=== PATIENT | female | born 1935 | race Asian ===

== ENCOUNTER 2018-02-23 16:26 | Outpatient (CLI) | payer OTHER, MEDICAID | END 2018-02-23 20:59 | disposition home or self-care (01) | LOC: SRD 16:26 | DX: M41.85 Other forms of scoliosis, thoracolumbar region (principal); I70.90 Unspecified atherosclerosis; Z90.49 Acquired absence of other specified parts of digestive tract | CPT/HCPCS: 72072-TC; 72110 ==

== ENCOUNTER 2023-02-01 12:13 | Inpatient (IN) | payer OTHER, MEDICAID ==
[~2023-02-01] VITALS: Ht 157.5 cm; Wt 42.6 kg
[2023-02-01 12:50] VITALS: BP_SYST 121
[2023-02-01 15:29] LABS: BASOPHILS % (AUTO) 0.3 % (0.0-2.0); HEMATOCRIT 38.1 % (36-48); HEMOGLOBIN 12.9 g/dL (12.0-16.0); LYMPHOCYTES # (AUTO) 0.8 K/uL (1.0-5.5); LYMPHOCYTES % (AUTO) 8.8 % (20.5-51.5); MEAN CORPUSCULAR HEMOGLOBIN 32 pg (27-31); MEAN CORPUSCULAR HGB CONC 34 % (32-36); MEAN CORPUSCULAR VOLUME 96 fL (79.0-98.0); MONOCYTES # (AUTO) 0.8 K/uL (0.0-1.0); MONOCYTES % (AUTO) 8.7 % (1.7-9.3); NEUTROPHILS # (AUTO) 7.8 K/uL (1.8-7.7); NEUTROPHILS % (AUTO) 82.2 % (40.0-70.0); PLATELET COUNT (AUTO) 165 K/uL (130-430); RED BLOOD CELL COUNT(AUTO) 3.98 MIL/uL (4.2-6.2); RED CELL DISTRIBUTION WIDTH 13.1 % (9.0-15.0); WHITE BLOOD COUNT (AUTO) 9.4 K/uL (4.8-10.8)
[2023-02-01 15:52] LABS: ANION GAP 11 (5-15); CALCIUM 9.2 mg/dL (8.4-11.0); CHLORIDE 103 mmol/L (98-107); CREATININE 1.35 mg/dL (0.55-1.30); GLUCOSE 111 mg/dL (70-99); UREA NITROGEN, BLOOD 21 mg/dL (8-21)
[2023-02-01 15:57] LABS: INR 1.1 (0.8-1.2); PROTHROMBIN TIME 11.3 SECS (9.5-12.5)
[2023-02-01 15:58] LABS: ALANINE AMINOTRANSFERASE 17 U/L (12-78); ALBUMIN 3.2 g/dL (3.4-4.8); ASPARTATE AMINOTRANSFERASE 18 U/L (10-37); TOTAL BILIRUBIN 0.8 mg/dL (0.0-1.0)
[2023-02-01] MEDS ORDERED: dilTIAZem HCL IVP 5 MG/ML VIAL IVP ONE (16:30)
[2023-02-01] MEDS ORDERED: DILTIAZEM HCL 60 MG TABLET PO ONE (16:30)
[2023-02-01] MEDS ORDERED: ESCI10TA PO (17:12)
[2023-02-01] MEDS ORDERED: METO25CA PO (17:12)
[2023-02-01] MEDS ORDERED: ATOR10TA68 PO (17:12)
[2023-02-01] MEDS ORDERED: DONE5TAB3 PO (17:12)
[2023-02-01] MEDS ORDERED: APIX2.5T PO (17:12)
[2023-02-01] MEDS ORDERED: POTASSIUM CHLORIDE 20 MEQ TAB.PRT.SR PO PRN (18:15)
[2023-02-01] MEDS ORDERED: MUPIROCIN 2% TOPICAL OINTMENT 22 GM NS PRN (18:15)
[2023-02-01] MEDS ORDERED: DOCUSATE SODIUM 100 MG CAPSULE PO PRN (18:15)
[2023-02-01] MEDS ORDERED: ACETAMINOPHEN 325 MG TABLET PO PRN (18:15)
[2023-02-01] MEDS ORDERED: MAGNESIUM SULFATE 50 ML IV PRN (18:15)
[2023-02-01] MEDS ORDERED: ZOLPIDEM TARTRATE 5 MG TABLET PO PRN (18:15)
[2023-02-01] MEDS ORDERED: ONDANSETRON HCL 4 MG/2 ML VIAL IVP PRN (18:15)
[2023-02-01] MEDS ORDERED: LORazepam 2 MG/ML VIAL IVP PRN (18:15)
[2023-02-01] MEDS: NACL 0.9% 1,000 ML IV SCH (19:21)
[2023-02-01] MEDS: METOPROLOL TARTRATE 25 MG TABLET PO SCH (21:00)
[2023-02-02] VITALS (7 sets, daily range): BP systolic 100–149
[2023-02-02 07:30] LABS: BASOPHILS % (AUTO) 0.2 % (0.0-2.0); HEMATOCRIT 33.8 % (36-48); HEMOGLOBIN 11.5 g/dL (12.0-16.0); LYMPHOCYTES # (AUTO) 1.6 K/uL (1.0-5.5); LYMPHOCYTES % (AUTO) 14.4 % (20.5-51.5); MEAN CORPUSCULAR HEMOGLOBIN 33 pg (27-31); MEAN CORPUSCULAR HGB CONC 34 % (32-36); MEAN CORPUSCULAR VOLUME 96 fL (79.0-98.0); MONOCYTES # (AUTO) 0.8 K/uL (0.0-1.0); MONOCYTES % (AUTO) 7.4 % (1.7-9.3); NEUTROPHILS # (AUTO) 8.6 K/uL (1.8-7.7); PLATELET COUNT (AUTO) 145 K/uL (130-430); RED CELL DISTRIBUTION WIDTH 13.3 % (9.0-15.0)
[2023-02-02] MEDS: APIXABAN 2.5 MG TABLET PO SCH ×3 (07:30→21:17)
[2023-02-02 07:46] LABS: ANION GAP 10 (5-15); CALCIUM 8.3 mg/dL (8.4-11.0); CHLORIDE 108 mmol/L (98-107); CREATININE 1.26 mg/dL (0.55-1.30); GLUCOSE 97 mg/dL (70-99); UREA NITROGEN, BLOOD 22 mg/dL (8-21)
[2023-02-02] MEDS: CITALOPRAM HYDROBROMIDE 20 MG TABLET PO SCH (08:34)
[2023-02-02] MEDS ORDERED: ESCITALOPRAM OXALATE 10 MG TABLET PO SCH (09:00)
[2023-02-02] MEDS: NACL 0.9% 1,000 ML IV SCH (09:33)
[2023-02-02] MEDS: METOPROLOL TARTRATE 25 MG TABLET PO SCH ×2 (09:38→21:16)
[2023-02-02] MEDS ORDERED: IPRATROPIUM/ALBUTEROL SULFATE 3 ML AMPUL.NEB (DUONEB) INH PRN (10:00)
[2023-02-02 20:34] LABS: BILIRUBIN,URINE NEGATIVE (NEGATIVE); BLOOD, URINE NEGATIVE (NEGATIVE); CLARITY/URINE CLEAR (CLEAR); COLOR,URINE YELLOW (YELLOW); GLUCOSE,URINE NEGATIVE (NEGATIVE); KETONES,URINE 1+ (NEGATIVE); LEUKOCYTE ESTERASE ,URINE NEGATIVE (NEGATIVE); NITRITE, URINE NEGATIVE (NEGATIVE); PROTEIN URINE NEGATIVE (NEGATIVE); UROBILINOGEN,URINE 0.2 (0.2-1.0)
[2023-02-03 05:22] LABS: BASOPHILS % (AUTO) 0.2 % (0.0-2.0); EOSINOPHILS % (AUTO) 0.1 % (0.0-4.0); HEMATOCRIT 33.4 % (36-48); HEMOGLOBIN 11.2 g/dL (12.0-16.0); LYMPHOCYTES # (AUTO) 1.3 K/uL (1.0-5.5); LYMPHOCYTES % (AUTO) 15.2 % (20.5-51.5); MEAN CORPUSCULAR HEMOGLOBIN 32 pg (27-31); MEAN CORPUSCULAR HGB CONC 33 % (32-36); MEAN CORPUSCULAR VOLUME 97 fL (79.0-98.0); MONOCYTES # (AUTO) 0.6 K/uL (0.0-1.0); MONOCYTES % (AUTO) 6.7 % (1.7-9.3); NEUTROPHILS # (AUTO) 6.8 K/uL (1.8-7.7); NEUTROPHILS % (AUTO) 77.8 % (40.0-70.0); PLATELET COUNT (AUTO) 151 K/uL (130-430); RED BLOOD CELL COUNT(AUTO) 3.45 MIL/uL (4.2-6.2); RED CELL DISTRIBUTION WIDTH 13.4 % (9.0-15.0); WHITE BLOOD COUNT (AUTO) 8.7 K/uL (4.8-10.8)
[2023-02-03 06:01] LABS: ANION GAP 9 (5-15); CHLORIDE 106 mmol/L (98-107); CREATININE 0.94 mg/dL (0.55-1.30); GLUCOSE 82 mg/dL (70-99); UREA NITROGEN, BLOOD 18 mg/dL (8-21)
[2023-02-03 08:00] VITALS: BP_SYST 151
[2023-02-03] MEDS: APIXABAN 2.5 MG TABLET PO SCH ×2 (09:23→21:00)
[2023-02-03] MEDS: CITALOPRAM HYDROBROMIDE 20 MG TABLET PO SCH (09:25)
[2023-02-03] MEDS: METOPROLOL TARTRATE 25 MG TABLET PO SCH ×2 (09:25→20:59)
[2023-02-03 11:23] VITALS: BP_SYST 158
[2023-02-03] MEDS: PIPERACILLIN/TAZO 3.375/DEX-IS 50 ML IV SCH ×3 (12:00→23:50)
[2023-02-03] MEDS: NACL 0.9% 1,000 ML IV SCH (13:09)
[2023-02-03 15:01] VITALS: BP_SYST 116
[2023-02-03 20:00] VITALS: BP_SYST 117
[2023-02-04] VITALS (7 sets, daily range): BP systolic 114–146
[2023-02-04] MEDS: NACL 0.9% 1,000 ML IV SCH ×3 (00:04→22:25)
[2023-02-04 05:50] LABS: BASOPHILS % (AUTO) 0.4 % (0.0-2.0); EOSINOPHILS % (AUTO) 0.7 % (0.0-4.0); HEMATOCRIT 33.1 % (36-48); LYMPHOCYTES # (AUTO) 1.2 K/uL (1.0-5.5); LYMPHOCYTES % (AUTO) 20.1 % (20.5-51.5); MEAN CORPUSCULAR HEMOGLOBIN 32 pg (27-31); MEAN CORPUSCULAR HGB CONC 33 % (32-36); MEAN CORPUSCULAR VOLUME 97 fL (79.0-98.0); MONOCYTES # (AUTO) 0.5 K/uL (0.0-1.0); MONOCYTES % (AUTO) 8.3 % (1.7-9.3); NEUTROPHILS # (AUTO) 4.4 K/uL (1.8-7.7); NEUTROPHILS % (AUTO) 70.5 % (40.0-70.0); PLATELET COUNT (AUTO) 150 K/uL (130-430); RED BLOOD CELL COUNT(AUTO) 3.42 MIL/uL (4.2-6.2); RED CELL DISTRIBUTION WIDTH 13.3 % (9.0-15.0); WHITE BLOOD COUNT (AUTO) 6.2 K/uL (4.8-10.8)
[2023-02-04] MEDS: PIPERACILLIN/TAZO 3.375/DEX-IS 50 ML IV SCH ×2 (05:51→12:38)
[2023-02-04 06:20] LABS: ANION GAP 8 (5-15); CALCIUM 8.2 mg/dL (8.4-11.0); CHLORIDE 111 mmol/L (98-107); CREATININE 1.01 mg/dL (0.55-1.30); GLUCOSE 88 mg/dL (70-99); UREA NITROGEN, BLOOD 17 mg/dL (8-21)
[2023-02-04] MEDS: CITALOPRAM HYDROBROMIDE 20 MG TABLET PO SCH (08:38)
[2023-02-04] MEDS: METOPROLOL TARTRATE 25 MG TABLET PO SCH ×2 (08:40→20:37)
[2023-02-04] MEDS: APIXABAN 2.5 MG TABLET PO SCH ×2 (08:45→20:38)
[2023-02-04] MEDS ORDERED: APIX2.5T PO (19:24)
[2023-02-04] MEDS ORDERED: LEVO500P13 IV (19:26)
[2023-02-05 01:21] VITALS: BP_SYST 128
[2023-02-05 04:28] LABS: BASOPHILS % (AUTO) 0.4 % (0.0-2.0); EOSINOPHILS # (AUTO) 0.1 K/uL (0.0-0.4); EOSINOPHILS % (AUTO) 1.7 % (0.0-4.0); HEMATOCRIT 33.4 % (36-48); HEMOGLOBIN 11.2 g/dL (12.0-16.0); LYMPHOCYTES # (AUTO) 1.3 K/uL (1.0-5.5); LYMPHOCYTES % (AUTO) 23.6 % (20.5-51.5); MEAN CORPUSCULAR HEMOGLOBIN 32 pg (27-31); MEAN CORPUSCULAR HGB CONC 34 % (32-36); MEAN CORPUSCULAR VOLUME 95 fL (79.0-98.0); MONOCYTES # (AUTO) 0.6 K/uL (0.0-1.0); MONOCYTES % (AUTO) 11.6 % (1.7-9.3); NEUTROPHILS # (AUTO) 3.3 K/uL (1.8-7.7); NEUTROPHILS % (AUTO) 62.7 % (40.0-70.0); PLATELET COUNT (AUTO) 163 K/uL (130-430); RED BLOOD CELL COUNT(AUTO) 3.51 MIL/uL (4.2-6.2); WHITE BLOOD COUNT (AUTO) 5.3 K/uL (4.8-10.8)
[2023-02-05 04:43] LABS: ANION GAP 10 (5-15); CHLORIDE 112 mmol/L (98-107); CREATININE 0.92 mg/dL (0.55-1.30); GLUCOSE 88 mg/dL (70-99); UREA NITROGEN, BLOOD 12 mg/dL (8-21)
[2023-02-05 08:00] VITALS: BP_SYST 150
[2023-02-05] MEDS: NACL 0.9% 1,000 ML IV SCH (08:03)
[2023-02-05] MEDS ORDERED: LEVO-62 PO (08:15)
[2023-02-05] MEDS: METOPROLOL TARTRATE 25 MG TABLET PO SCH (08:21)
[2023-02-05] MEDS: CITALOPRAM HYDROBROMIDE 20 MG TABLET PO SCH (08:21)
[2023-02-05] MEDS: APIXABAN 2.5 MG TABLET PO SCH (08:31)
[2023-02-05 10:05] VITALS: BP_SYST 150
[2023-02-05 11:37] VITALS: BP_SYST 111
[2023-02-05 13:27] VITALS: BP_SYST 111
[2023-02-05 16:35] VITALS: BP_SYST 134
[2023-02-05] MEDS ORDERED: ALBMDI INH (16:59)
== END 2023-02-05 17:04 | disposition home health service (06) | DRG 177 ==
LOC: SED 12:13 → STU 17:04 → SMU 02-05 12:56
PROVIDERS: ADMIT General Practice; ATTEND General Practice
DX: J69.0 Pneumonitis due to inhalation of food and vomit (principal); I50.43 Acute on chronic combined systolic (congestive) and diastolic (congestive) heart failure; N17.0 Acute kidney failure with tubular necrosis; I48.20 Chronic atrial fibrillation, unspecified; E44.0 Moderate protein-calorie malnutrition; Z68.1 Body mass index [BMI] 19.9 or less, adult; I11.0 Hypertensive heart disease with heart failure; E78.5 Hyperlipidemia, unspecified; F32.A Depression, unspecified; F03.90 Unspecified dementia, unspecified severity, without behavioral disturbance, psychotic disturbance, mood disturbance, and anxiety; Z20.822 Contact with and (suspected) exposure to COVID-19; R32 Unspecified urinary incontinence; Z86.73 Personal history of transient ischemic attack (TIA), and cerebral infarction without residual deficits; Z90.49 Acquired absence of other specified parts of digestive tract; Z79.01 Long term (current) use of anticoagulants
CPT/HCPCS: 36415; 71045; 71046-TC; 80048; 80053; 81003; 83037; 83605; 83735; 83880; 84443; 84484; 85025; 85610-TC; 85730-TC; 92610-GN; 93005; 93306; 94640; 94760; 97110-GP; 97116-GP; 97163-GP; 97530-GP; 99285; G0378; J1956; J2543; J3490

== ENCOUNTER 2023-02-25 23:35 | Inpatient (IN) | payer OTHER, MEDICAID ==
[~2023-02-25] VITALS: Ht 149.9 cm; Wt 40.8 kg
[~2023-02-25 23:35] MED LIST: ALBMDI INH; APIX2.5T PO; ATOR10TA68 PO; DONE5TAB3 PO; ESCI10TA PO; LEVO-62 PO; LEVO500P13 IV; METO25CA PO
[2023-02-25 23:40] VITALS: BP_SYST 121
--- NOTE | 2023-02-25 23:40 | NUR ---
Placed in room 3 . Placed on manager monitoring, blood pressure machine and pulse oximeter. To gown for exam. Side rails up. Report given to SENIA HUNG(REG).
--- NOTE | 2023-02-25 23:56 | NUR ---
ER at bedside examining patient.
[2023-02-26] MEDS ORDERED: NACL 0.9% 1,000 ML IV ONE
--- NOTE | 2023-02-26 00:05 | NUR ---
per family pt has been weak and not eating. pt has a cough. pt has hx of a fib. pt on the monitor
[2023-02-26] MEDS ORDERED: ALBUTEROL MDI INHALATION 8 GM INH INH PRN (00:45)
[2023-02-26 01:01] LABS: BASOPHILS % (AUTO) 0.5 % (0.0-2.0); EOSINOPHILS # (AUTO) 0.1 K/uL (0.0-0.4); EOSINOPHILS % (AUTO) 2.5 % (0.0-4.0); HEMATOCRIT 37.5 % (36-48); HEMOGLOBIN 12.3 g/dL (12.0-16.0); LYMPHOCYTES # (AUTO) 1.2 K/uL (1.0-5.5); LYMPHOCYTES % (AUTO) 21.9 % (20.5-51.5); MEAN CORPUSCULAR HEMOGLOBIN 32 pg (27-31); MEAN CORPUSCULAR HGB CONC 33 % (32-36); MEAN CORPUSCULAR VOLUME 96 fL (79.0-98.0); MONOCYTES # (AUTO) 0.6 K/uL (0.0-1.0); MONOCYTES % (AUTO) 10.7 % (1.7-9.3); NEUTROPHILS # (AUTO) 3.6 K/uL (1.8-7.7); NEUTROPHILS % (AUTO) 64.4 % (40.0-70.0); PLATELET COUNT (AUTO) 191 K/uL (130-430); RED BLOOD CELL COUNT(AUTO) 3.89 MIL/uL (4.2-6.2); RED CELL DISTRIBUTION WIDTH 14.3 % (9.0-15.0); WHITE BLOOD COUNT (AUTO) 5.6 K/uL (4.8-10.8)
[2023-02-26 01:36] LABS: ALANINE AMINOTRANSFERASE 14 U/L (12-78); ALBUMIN 2.4 g/dL (3.4-4.8); ANION GAP 7 (5-15); ASPARTATE AMINOTRANSFERASE 25 U/L (10-37); CALCIUM 8.9 mg/dL (8.4-11.0); CHLORIDE 115 mmol/L (98-107); CREATININE 1.67 mg/dL (0.55-1.30); GLUCOSE 109 mg/dL (70-99); TOTAL BILIRUBIN 0.6 mg/dL (0.0-1.0); UREA NITROGEN, BLOOD 28 mg/dL (8-21)
[2023-02-26 01:41] LABS: C-REACTIVE PROTEIN QUANT < 0.2 mg/dL (0-0.5)
[2023-02-26 01:43] LABS: INR 1.4 (0.8-1.2); PROTHROMBIN TIME 13.8 SECS (9.5-12.5)
[2023-02-26] MEDS ORDERED: NACL 0.9% 1,000 ML IV SCH (02:15)
--- NOTE | 2023-02-26 02:30 | NUR ---
attempted straight cath. pt didnt have urine come out. pt is dry. is aware
[2023-02-26] MEDS ORDERED: cefTRIAXone 1 GM IVPB PREMIX 50 ML IV ONE (03:07)
[2023-02-26] MEDS: cefTRIAXone 1 GM in D5W 50 ML IV SCH (03:16)
--- NOTE | 2023-02-26 03:41 | NUR ---
CONSULTATION PAGED REASON FOR CONSULTATION: AF WAS CONSULT CALLED? Y PERSON WHO WAS NOTIFIED: Yisel CONSULTING PHYSICIAN: Jordan BAG SEALER SPECIALTY: Cardiovascular BAG SEALER PHONE NUMBER: [phone] REQUESTING PHYSICIAN: Christian
--- NOTE | 2023-02-26 04:27 | NUR ---
ADMISSION NOTE Received patient from ER via gurney. Patient admitted with diagnosis of AFIB W/ RVR. Patient is awake, alert, oriented X 1. Patient oriented to hospital room, call light, toileting, pain management and safety-teach back done. Patient informed that their room number is 104A. Personal belongings checked and Belongings List documented. Call light within reach.
[2023-02-26 04:29] VITALS: BP_SYST 138
--- NOTE | 2023-02-26 06:41 | NUR ---
SPOKE W/ DR WILLIAMSON Informed him that per son pt is on a pureed diet and has been having some difficulty swallowing. Ordered a swallow eval and change to puree diet. Also ordered to d/c ER doctor order of NS @200ml/hr due to pt history of CHF.
--- NOTE | 2023-02-26 06:53 | NUR ---
CLOSING NOTE Pt lying in bed, eyes closed. Son at bedside. No s/s of respiratory distress. Breathing even and unlabored on RA. IV site intact and patent saline lock. All needs met. Fall and safety precautions in place with bed in lowest position, bed alarm on, and call light within reach
[2023-02-26 08:00] VITALS: BP_SYST 140
[2023-02-26] MEDS ORDERED: METOPROLOL SUCCINATE 25 MG TAB.SR.24H (TOPROL XL) PO SCH (09:00)
[2023-02-26] MEDS: MEGESTROL ACETATE 400 MG/10 ML UDC PO SCH (09:08)
[2023-02-26] MEDS: DONEPEZIL HCL 5 MG TABLET (ARICEPT) PO SCH (09:08)
[2023-02-26] MEDS: ATORVASTATIN 10 MG TABLET PO SCH (09:08)
[2023-02-26] MEDS: APIXABAN 2.5 MG TABLET PO SCH ×2 (09:09→20:31)
[2023-02-26] MEDS ORDERED: D5W 500 ML IV ONE (10:00)
[2023-02-26] MEDS ORDERED: ALBUTEROL SULFATE 0.083% 2.5 MG/3 ML VIAL.NEB INH PRN (10:45)
[2023-02-26 11:23] VITALS: BP_SYST 138
[2023-02-26 15:21] VITALS: BP_SYST 143
--- NOTE | 2023-02-26 16:53 | NUR ---
ST EVALUATION COMPLETED. FAMILY PRESENT. ST TX NOT INDICATED AT THIS TIME. PT UNABLE TO DEMONSTRATE A SAFE EFFECTIVE SWALLOW. RECOMMEND NPO WITH ALTERNATIVE MEANS OF NUTRITION.
[2023-02-26 18:10] VITALS: BP_SYST 124
[2023-02-26] MEDS ORDERED: NALOXONE HCL 0.4 MG/ML AMP (NARCAN) IVP PRN (18:15)
[2023-02-26] MEDS ORDERED: NITROGLYCERIN 0.4 MG TAB.SUBL SL PRN (18:15)
[2023-02-26] MEDS ORDERED: MORPHINE 2 MG/ML INJ. SYRINGE IVP PRN (18:15)
--- NOTE | 2023-02-26 18:15 | NUR ---
HIGH ALERT NOTE: Called back at numbers identified within the medical roster to verify physician authenticity.
--- NOTE | 2023-02-26 18:30 | NUR ---
pt c/o chest pain, called and notified,stat EKG and troponin ordered give morphine 2 mg IV as prn order for pain,informed pt failed swallow eval.order received for GI consult.keep pt NPO,continue IVF infusion. continue to monitor pt.
[2023-02-26] MEDS: D5/0.45 NS 1,000 ML IV SCH (18:40)
--- NOTE | 2023-02-26 19:15 | NUR ---
OPENING NOTE REPORT RECEIVED FROM DAYSHIFT NURSE. PATIENT RECEIVED LYING IN BED, NO S/S OF ACUTE DISTRESS. BREATHING EVEN AND UNLABORED. HOB RAISED. IVF INFUSING WELL. IV SITE PATENT, NO SIGNS OF INFILTRATION OR INFECTION NOTED. ALL NEEDS MET THROUGHOUT SHIFT. FALL, SAFETY, PRECAUTIONS MAINTAINED THROUGHOUT SHIFT. WILL CONTINUE TO MONITOR UNTIL PATIENT CARE IS ENDORSED TO ONCOMING DAYSHIFT NURSE.
[2023-02-26 20:00] VITALS: BP_SYST 116
[2023-02-26] MEDS: METOPROLOL SUCCINATE 25 MG TAB.SR.24H (TOPROL XL) PO SCH (20:31)
[2023-02-27 00:30] VITALS: BP_SYST 101
[2023-02-27] MEDS: cefTRIAXone 1 GM in D5W 50 ML IV SCH (01:44)
[2023-02-27] MEDS: D5/0.45 NS 1,000 ML IV SCH ×2 (04:40→18:20)
[2023-02-27 05:24] LABS: BASOPHILS % (AUTO) 0.5 % (0.0-2.0); EOSINOPHILS # (AUTO) 0.3 K/uL (0.0-0.4); EOSINOPHILS % (AUTO) 5.5 % (0.0-4.0); HEMATOCRIT 34.9 % (36-48); HEMOGLOBIN 11.5 g/dL (12.0-16.0); LYMPHOCYTES # (AUTO) 1.7 K/uL (1.0-5.5); LYMPHOCYTES % (AUTO) 28.4 % (20.5-51.5); MEAN CORPUSCULAR HEMOGLOBIN 32 pg (27-31); MEAN CORPUSCULAR HGB CONC 33 % (32-36); MEAN CORPUSCULAR VOLUME 96 fL (79.0-98.0); MONOCYTES # (AUTO) 0.5 K/uL (0.0-1.0); MONOCYTES % (AUTO) 8.9 % (1.7-9.3); NEUTROPHILS # (AUTO) 3.4 K/uL (1.8-7.7); NEUTROPHILS % (AUTO) 56.7 % (40.0-70.0); PLATELET COUNT (AUTO) 158 K/uL (130-430); RED BLOOD CELL COUNT(AUTO) 3.65 MIL/uL (4.2-6.2); RED CELL DISTRIBUTION WIDTH 13.8 % (9.0-15.0)
[2023-02-27 05:43] LABS: ALANINE AMINOTRANSFERASE 14 U/L (12-78); ALBUMIN 2.1 g/dL (3.4-4.8); ANION GAP 6 (5-15); ASPARTATE AMINOTRANSFERASE 23 U/L (10-37); CALCIUM 8.1 mg/dL (8.4-11.0); CHLORIDE 115 mmol/L (98-107); CREATININE 1.18 mg/dL (0.55-1.30); GLUCOSE 113 mg/dL (70-99); TOTAL BILIRUBIN 0.3 mg/dL (0.0-1.0); UREA NITROGEN, BLOOD 15 mg/dL (8-21)
[2023-02-27 06:24] LABS: BILIRUBIN,URINE NEGATIVE (NEGATIVE); BLOOD, URINE 2+ (NEGATIVE); CLARITY/URINE SL CLOUDY (CLEAR); COLOR,URINE YELLOW (YELLOW); GLUCOSE,URINE NEGATIVE (NEGATIVE); KETONES,URINE NEGATIVE (NEGATIVE); LEUKOCYTE ESTERASE ,URINE 1+ (NEGATIVE); NITRITE, URINE NEGATIVE (NEGATIVE); PH,URINE 6.5 (5.0-8.0); PROTEIN URINE TRACE (NEGATIVE); UROBILINOGEN,URINE 0.2 (0.2-1.0)
[2023-02-27 08:00] VITALS: BP_SYST 91
[2023-02-27] MEDS: DONEPEZIL HCL 5 MG TABLET (ARICEPT) PO SCH (09:00)
[2023-02-27] MEDS: ATORVASTATIN 10 MG TABLET PO SCH (09:00)
[2023-02-27] MEDS: MEGESTROL ACETATE 400 MG/10 ML UDC PO SCH (09:00)
[2023-02-27] MEDS: METOPROLOL SUCCINATE 25 MG TAB.SR.24H (TOPROL XL) PO SCH ×2 (09:00→21:00)
[2023-02-27] MEDS: APIXABAN 2.5 MG TABLET PO SCH (09:00)
[2023-02-27 09:42] LABS: BACTERIA,URINE MODERATE /HPF (None Seen); MUCUS,URINE 1+ /LPF (None Seen)
--- NOTE | 2023-02-27 10:52 | NUR ---
CONSULTATION PAGED/CALLED Reason for Consultation: pt failed swallow eval Person Who was Notified: fermin by william Consulting Physician: Product/Device Technologist Specialty: GI Ordering Physician:
[2023-02-27] MEDS ORDERED: HEPARIN SODIUM,PORCINE 5,000 UNITS/ML VIAL SUBCUT ONE (11:15)
[2023-02-27 11:21] VITALS: BP_SYST 127
[2023-02-27] MEDS ORDERED: POTASSIUM CHLORIDE 40 MEQ, LIDOCAINE JECT 2% PF 100 MG 50 MG in NS 250 ML IV ONE (14:00)
[2023-02-27 15:30] VITALS: BP_SYST 123
--- NOTE | 2023-02-27 18:24 | NUR ---
pt sleeping well in bed,non verbal,responds to verbal stimuli,vss, afib hr 90's per hall monitor,NPO status,IVF continue infusing K level 3.1 per am lab,give K rider 40 meq IV once per dr order incontinent of urine,periwack cath in place,total care provided, hourly rounds made,safety maintained,continue to monitor pt.
[2023-02-27 20:00] VITALS: BP_SYST 118
[2023-02-27] MEDS: HEPARIN SODIUM,PORCINE 5,000 UNITS/ML VIAL SUBCUT SCH (22:03)
[2023-02-28 00:10] VITALS: BP_SYST 135
[2023-02-28] MEDS: cefTRIAXone 1 GM in D5W 50 ML IV SCH (01:49)
[2023-02-28 08:00] VITALS: BP_SYST 131
[2023-02-28] MEDS: ATORVASTATIN 10 MG TABLET PO SCH (09:00)
[2023-02-28] MEDS: DONEPEZIL HCL 5 MG TABLET (ARICEPT) PO SCH (09:00)
[2023-02-28] MEDS: MEGESTROL ACETATE 400 MG/10 ML UDC PO SCH (09:00)
[2023-02-28] MEDS: METOPROLOL SUCCINATE 25 MG TAB.SR.24H (TOPROL XL) PO SCH ×2 (09:00→21:00)
[2023-02-28] MEDS: HEPARIN SODIUM,PORCINE 5,000 UNITS/ML VIAL SUBCUT SCH (10:05)
--- NOTE | 2023-02-28 12:00 | NUR ---
IV RE-INSERTION: Complaining of positional to IV site left antecubital. Restarted on right forearm 22 gauge . Successful after 1 attempts. Resumed current IVF of D51/2NS and regulated @ 60 per hour. Will observe for any signs of infiltration.
[2023-02-28 15:25] LABS: ANION GAP 5 (5-15); CALCIUM 8.3 mg/dL (8.4-11.0); CHLORIDE 107 mmol/L (98-107); CREATININE 0.94 mg/dL (0.55-1.30); GLUCOSE 90 mg/dL (70-99); UREA NITROGEN, BLOOD 7 mg/dL (8-21)
[2023-02-28 16:00] VITALS: BP_SYST 119
[2023-02-28] MEDS ORDERED: MAGNESIUM SULFATE/D5W 100 ML IV ONE (17:30)
[2023-02-28] MEDS ORDERED: POTASSIUM CHLORIDE 40 MEQ, LIDOCAINE JECT 2% PF 100 MG 50 MG in NS 250 ML IV ONE (17:30)
[2023-02-28] MEDS: D5/0.45 NS 1,000 ML IV SCH (18:02)
--- NOTE | 2023-02-28 18:40 | NUR ---
pt confused,vss,NPO.IVF continue infusing,needs attended, total care provided,K level 3.4,mag 1.9, notified and give K rider 40meq IV and mag rider 1 gm IV once per order pt daughter lizet informed of oncoming EGD with PEG tomorrow consent signed by lizet obtained,hourly rounds made,safety maintained continue to monitor pt.
--- NOTE | 2023-02-28 19:40 | NUR ---
Opening note Patient is awake, no distress. Nonlabored breathing on room air, though takes shallow breaths, SpO2 100% on room air Son is visiting at bedside. IVF infusing via IV to RFA. Bed is locked in lowest position, side rails up, bed alarm on and call light w/in reach.
[2023-02-28 20:00] VITALS: BP_SYST 122
--- NOTE | 2023-02-28 21:52 | NUR ---
Dr. Gonzales w/w Dr. Gonzales and reminded patient have PEG in am; he said stop Heparin.
[2023-03-01 00:10] VITALS: BP_SYST 126
[2023-03-01] MEDS: D5/0.45 NS 1,000 ML IV SCH ×2 (00:18→14:22)
[2023-03-01] MEDS: cefTRIAXone 1 GM in D5W 50 ML IV SCH (03:38)
--- NOTE | 2023-03-01 04:00 | NUR ---
Patient care Patient is incontinent, had bowel movement and provided pericare. Provided new Purewick, pad and gown. CHG bath given, repositioned and turned.
[2023-03-01 06:28] LABS: BASOPHILS % (AUTO) 0.4 % (0.0-2.0); EOSINOPHILS # (AUTO) 0.2 K/uL (0.0-0.4); EOSINOPHILS % (AUTO) 4.5 % (0.0-4.0); LYMPHOCYTES # (AUTO) 1.7 K/uL (1.0-5.5); MEAN CORPUSCULAR HEMOGLOBIN 32 pg (27-31); MEAN CORPUSCULAR HGB CONC 33 % (32-36); MEAN CORPUSCULAR VOLUME 95 fL (79.0-98.0); MONOCYTES # (AUTO) 0.6 K/uL (0.0-1.0); MONOCYTES % (AUTO) 11.4 % (1.7-9.3); NEUTROPHILS # (AUTO) 2.5 K/uL (1.8-7.7); NEUTROPHILS % (AUTO) 49.7 % (40.0-70.0); PLATELET COUNT (AUTO) 147 K/uL (130-430); RED CELL DISTRIBUTION WIDTH 13.7 % (9.0-15.0)
[2023-03-01 06:44] LABS: ANION GAP 7 (5-15); CHLORIDE 106 mmol/L (98-107); GLUCOSE 91 mg/dL (70-99); UREA NITROGEN, BLOOD 5 mg/dL (8-21)
[2023-03-01 07:08] LABS: INR 1.2 (0.8-1.2); PROTHROMBIN TIME 12.2 SECS (9.5-12.5)
[2023-03-01] MEDS ORDERED: MIDAZOLAM HCL 5 MG/5 ML VIAL ONE (07:16)
[2023-03-01] MEDS ORDERED: fentaNYL CITRATE/PF 100 MCG/2 ML AMP ONE (07:16)
--- NOTE | 2023-03-01 07:35 | NUR ---
initial notes Patient is AOx2. understands German, daughter at bedside. Vital signs obtained, as documented. No ss of distress noted. breathing is even and nonlabored, on room air. IV patent. IVF running. No SOB noted. Patient denies pain. Consents for GT placement have been signed and in chart. Patient prepped and left for procedure. Family left to GI waiting room.
[2023-03-01] MEDS ORDERED: CEFAZOLIN 1 GM IVPB PREMIX 50 ML IV ONE (07:59)
[2023-03-01 08:00] VITALS: BP_SYST 139
[2023-03-01] MEDS ORDERED: ceFAZolin SODIUM 2 GM in D5W 100 ML IV ONE (08:15)
--- NOTE | 2023-03-01 09:00 | NUR ---
notes Patient back in unit. tele box connected. Vital signs obtained. Patient shows no ss of distress noted. Breathing is even and nonlabored, on room air. IVF running. IV patent. Patient has been cleaned and repositioned. HOB elevated. Bed is locked, alarm on, and at lowest position. Call light within reach. family at bedside.
[2023-03-01 10:09] VITALS: BP_SYST 128
[2023-03-01] MEDS: ATORVASTATIN 10 MG TABLET PO SCH (10:27)
[2023-03-01] MEDS: METOPROLOL SUCCINATE 25 MG TAB.SR.24H (TOPROL XL) PO SCH ×2 (10:27→21:49)
[2023-03-01] MEDS: MEGESTROL ACETATE 400 MG/10 ML UDC PO SCH (10:27)
[2023-03-01] MEDS: DONEPEZIL HCL 5 MG TABLET (ARICEPT) PO SCH (10:30)
--- NOTE | 2023-03-01 10:44 | NUR ---
notes auscultated for GT placement. Air bubbles auscultated. no residual. Administered AM medication. HOB elevated. No ss of distress noted. Breathing is even and nonlabored, on room air. All safety precautions in place and call light within reach.
[2023-03-01 11:23] VITALS: BP_SYST 141
--- NOTE | 2023-03-01 12:00 | NUR ---
Notes Patient is resting. no distress. no SOB noted. breathing is even and nonlabored, room air. Patient has been cleaned and repositioned. All safety precautions in place and call light within reach.
[2023-03-01 15:08] VITALS: BP_SYST 130
--- NOTE | 2023-03-01 15:12 | NUR ---
notes Patient has been repositioned. no ss of distress. resting, eyes closed. breathing is even and nonlabored, on room air. all safety precautions in place and call light within reach.
--- NOTE | 2023-03-01 16:13 | NUR ---
GT FEEDING GT FEEDING STARTED AT 10CC/HR, PER ORDER, TO INCREASE BY 10 CC/ HR Q1 HR. GOAL IS 50 CC/ HR. HOB ELEVATED. NO DISTRESS NOTED. EDUCATED FAMILY OF ASPIRATION PRECAUTIONS. FAMILY VERBALIZED UNDERSTANDING. SAFETY PRECAUTIONS IN PLACE AND CALL LIGHT WITHIN REACH.
--- NOTE | 2023-03-01 19:45 | NUR ---
CLOSING NOTES PATIENT IS RESTING, EYES CLOSED. BREATHING IS EVEN AND NONLABORED, ON ROOM AIR. GT FEEDING RUNNING. PATIENT TOLERATING WELL. HOB ELEVATED. NO SS OF DISTRESS NOTED. NO FACIAL GRIAMCE NOTED. ALL NEEDS MET. PATIENT STABLE. BED LOCKED, ALARM ON, AND AT LOWEST POSITION. CALL LIGHT WITHIN REACH. REPORT GIVEN TO VINCE CALHOUN.
[2023-03-01 20:00] VITALS: BP_SYST 122
[2023-03-02] VITALS: BP_SYST 118
[2023-03-02] MEDS: cefTRIAXone 1 GM in D5W 50 ML IV SCH (04:05)
[2023-03-02 06:03] LABS: BASOPHILS % (AUTO) 0.2 % (0.0-2.0); EOSINOPHILS # (AUTO) 0.1 K/uL (0.0-0.4); EOSINOPHILS % (AUTO) 1.5 % (0.0-4.0); HEMATOCRIT 35.9 % (36-48); HEMOGLOBIN 12.2 g/dL (12.0-16.0); LYMPHOCYTES % (AUTO) 13.1 % (20.5-51.5); MEAN CORPUSCULAR HEMOGLOBIN 32 pg (27-31); MEAN CORPUSCULAR HGB CONC 34 % (32-36); MEAN CORPUSCULAR VOLUME 94 fL (79.0-98.0); MONOCYTES # (AUTO) 0.9 K/uL (0.0-1.0); MONOCYTES % (AUTO) 11.7 % (1.7-9.3); NEUTROPHILS # (AUTO) 5.4 K/uL (1.8-7.7); NEUTROPHILS % (AUTO) 73.5 % (40.0-70.0); PLATELET COUNT (AUTO) 140 K/uL (130-430); RED CELL DISTRIBUTION WIDTH 13.5 % (9.0-15.0); WHITE BLOOD COUNT (AUTO) 7.3 K/uL (4.8-10.8)
[2023-03-02 06:26] LABS: ANION GAP 7 (5-15); CALCIUM 7.9 mg/dL (8.4-11.0); CHLORIDE 108 mmol/L (98-107); CREATININE 0.98 mg/dL (0.55-1.30); GLUCOSE 141 mg/dL (70-99); UREA NITROGEN, BLOOD 7 mg/dL (8-21)
[2023-03-02 08:00] VITALS: BP_SYST 131
--- NOTE | 2023-03-02 08:19 | NUR ---
OPENING NOTES: PT IN BED WITH EYES CLOSED. FAMILY SITTING AT BEDSIDE. IV ALARM IS RINGING WIT HIGH PRESSURE. CHECKED IV PATENCY WITH NORMAL SALINE AND IT WILL NOT FLUSH. NOTIFIED FAMILY THAT IV WILL NEED TO BE CHANGED. PT IV FLUIDS ONLY BY IV IN EMAR AND ROCEPHIN AT 2AM 4/5. BREATHING IS EVEN AND UNLABORED ON RA 95%. NO S/S OF DISTRESS OR PAIN REPORTED. EDUCATED PT AND FAMILY ON USE OF CALL LIGHT SHOULD THEY NEED ANYTHING. ALL NEEDS MET AT THIS TIME, SAFETY CHECKS MADE AND CALL LIGHT WITHIN REACH.
[2023-03-02] MEDS: MEGESTROL ACETATE 400 MG/10 ML UDC PO SCH (08:53)
[2023-03-02] MEDS: DONEPEZIL HCL 5 MG TABLET (ARICEPT) PO SCH (08:53)
[2023-03-02] MEDS: METOPROLOL SUCCINATE 25 MG TAB.SR.24H (TOPROL XL) PO SCH (08:53)
[2023-03-02] MEDS: ATORVASTATIN 10 MG TABLET PO SCH (08:53)
--- NOTE | 2023-03-02 09:17 | NUR ---
FAMILY AT BEDSIDE. GAVE PATIENT MORNING MEDICATIONS THROUGH GTUBE. NO RESIDUALS NOTED. FLUSHED GTUBE. JEVITY 1.2 RUNNING AT 50MLS/HR. CLEANED PATIENT WITH GLOBAL RECRUITER PATIENT HAD URINATED AND HAD A BOWEL MOVEMENT. REPLACED TUBING ON PUREWICK AND VERIFIED SUCTION. REPOSITIONED PATIENT TO COMFORT AND ELEVATED HEAD OF BED 40 DEGREES TO PREVENT ASPIRATION.
[2023-03-02] MEDS: D5/0.45 NS 1,000 ML IV SCH (09:38)
[2023-03-02 11:24] VITALS: BP_SYST 118
--- NOTE | 2023-03-02 13:39 | NUR ---
patient existing HH service with [facility] verified. DC planning referral packet faxed to Cande Sandy [phone]
[2023-03-02] MEDS ORDERED: CEPH250S GT (14:31)
[2023-03-02] MEDS ORDERED: LACT1CAP62 GT (14:33)
--- NOTE | 2023-03-02 14:46 | NUR ---
Patient accepted back with [facility]. CM faxed order for peg tube supplies for bolus feeding and residual check syringe kit to [facility] f# [phone]. CM to follow up.
[2023-03-02 15:18] VITALS: BP_SYST 126
--- NOTE | 2023-03-02 16:03 | NUR ---
DAUGHTER AT BEDSIDE. PT IN BED WITH EYES CLOSED. RESPONDED TO NAME. PLACED ABDOMINAL ON PATIENT. ALL NEEDS MET BAT THIS TIME ,SAFETY CHECKS MADE AND CALL LIGHT WITHIN REACH. Addendum: 03/02/23 at 1605 by Wen Llanos LVN REPOSITIONED PATIENT TO THE RIGHT.
[2023-03-02] MEDS: CEPHALEXIN 250 MG/5 ML, 100 ML BTL GT SCH (17:57)
--- NOTE | 2023-03-02 19:30 | NUR ---
Opening notes: Pt in bed watching with eyes closed. No s/s of distress or pain reported. breathing is even and unlabored on RA 98%. Jevity 1.2 running at 50 mls/hr. Safety checks made. bed alarm on. Call light within reach. Continue to monitor
--- NOTE | 2023-03-02 19:33 | NUR ---
closing notes: pt in bed watching with eyes closed. no s/s of distress or pain reported. breathing is even and unlabored on ra 97%. jevity 1.2 running at 50 mls/hr. all need met at this time, safety checks made and call light within reach. will endorse to shift leader nurse.
[2023-03-02 20:00] VITALS: BP_SYST 119
[2023-03-02] MEDS: LACTOBACILLUS RHAMNOSUS GG 1 CAP CAPSULE PO SCH (20:43)
[2023-03-02] MEDS: APIXABAN 2.5 MG TABLET GT SCH (20:43)
[2023-03-02] MEDS: METOPROLOL TARTRATE 25 MG TABLET GT SCH (20:43)
[2023-03-02] MEDS ORDERED: APIXABAN 2.5 MG TABLET PO SCH (21:00)
--- NOTE | 2023-03-02 22:34 | NUR ---
PERMISSION PT'S DAUGHTER RECEIVED THE PERMISSION TO STAY OVERNIGHT BY SENIOR STAFF SPECIALIZED EMPLOYMENT
[2023-03-03] VITALS (7 sets, daily range): BP systolic 119–149
[2023-03-03] MEDS: CEPHALEXIN 250 MG/5 ML, 100 ML BTL GT SCH ×4 (00:32→18:20)
--- NOTE | 2023-03-03 00:38 | NUR ---
ROUNDING NOTE PT LYING BED AND EYES OPEN. GIVEN KEFLEX VIA GTUBE. NO RESIDUAL. FLUSHED 30mL WATER. PT TOLERATED. SAFETY CHECKS IN PLACE. CONTINUE TO MONITOR
--- NOTE | 2023-03-03 01:40 | NUR ---
ROUNDING NOTE PT INCONTINENT. CHANGED PAD AND GIVEN PERINEAL CARE. G-TUBE RUNNING @50 AND DRESSING CLEAN & DRY. CONTINUE TO MONITOR
--- NOTE | 2023-03-03 06:30 | NUR ---
TEACHING GAVE INSTRUCTION HOW TO ADMINISTER GTUBE BOLUS. PT'S DAUGHTER VERBALLY UNDERSTANDING. SAFETY CHECK IN PLACE. CONTINUE TO MONITOR
--- NOTE | 2023-03-03 07:28 | NUR ---
closing notes: Pt in bed watching with eyes closed. No s/s of distress or pain reported. Breathing is even and unlabored on RA 98%. Jevity 1.2 running at 50 mls/hr. Safety checks made. bed alarm on. Call light within reach. endorsed to day shift nurse.
[2023-03-03] MEDS ORDERED: ATORVASTATIN 10 MG TABLET GT SCH (09:00)
[2023-03-03] MEDS ORDERED: DONEPEZIL HCL 5 MG TABLET (ARICEPT) GT SCH (09:00)
[2023-03-03] MEDS: LACTOBACILLUS RHAMNOSUS GG 1 CAP CAPSULE PO SCH (09:58)
[2023-03-03] MEDS: METOPROLOL TARTRATE 25 MG TABLET GT SCH (09:59)
[2023-03-03] MEDS: APIXABAN 2.5 MG TABLET GT SCH (10:00)
--- NOTE | 2023-03-03 11:57 | NUR ---
SAM faxed order for G tube feeding supplies to [facility] with response today. Dr Gonzales office and fax# given so that they can send him forms to sign.
--- NOTE | 2023-03-03 15:00 | NUR ---
Nutrition F/U RD reviewed pts current EMR including diet hx, physician notes, nursing notes, pertinent labs/meds/procedures, care trends and care activity. Subjective Information NC recd 03/03/23 @ 1251 for diarrhea from new TF. RD s/w pt RN about new diarrhea. RD asked if any new meds were given and she said the only new thing is the TF. Normally, Vital AF would be a good option that is very easy to digest but the kitchen is out of stock. RD suggested Vital HP instead for the time being. Per EMR review: abd soft, non-distended w/ active bowel sounds; low GRV (under 25mL since 03/02). Current Diet Order/Nutrition Support Jevity 1.2 @ 50mL/hr, FWF 100mL via GT % PO intake NPO Last BM 04/01 x 4- diarrhea Estimated Energy Expenditure (kcals/day) 9833-1758 (30-35 kcal/kg IBW [45kg] d/t FTT, wt gain promotion) Estimated Protein Required (g/day) 68-90 (1.5-2 g/kg IBW d/t FTT) Estimated Fluid Required (l/day) Defer to MD (CHF) Problem/Etiology/Signs/Symptoms * Risk for malnutrition R/T catabolic illness AEB estimated nutritional needs for wt gain promotion, BMI 18.2 kg/m2, and 92% of IBW. * Inadequate nutrient intake R/T poor PO intakes AEB failed swallow eval and need for EN support. Expected Outcomes/Goals * Monitor EN support w/ goal of pt meeting >80% of estimated nutritional needs, nutrition-related labs trending WNL, BM regime, skin integrity w/ wt. maintenance. Dietitian Recommendations * Ordered new formula: Vital HP @ 55mL/hr via GT Provides: 1320 kcal, 115g PRO, 1103mL free water Meets: 98% of lower est kcal, 128% of upper est PRO * Defer to MD for Free Water Flush d/t CHF. Follow up *High risk: f/u in 2-3 days GS, MPH, RD
--- NOTE | 2023-03-03 15:01 | NUR ---
Dietitian Recommendations * Ordered new formula: Vital HP @ 55mL/hr via GT Provides: 1320 kcal, 115g PRO, 1103mL free water Meets: 98% of lower est kcal, 128% of upper est PRO * Defer to MD for Free Water Flush d/t CHF. GS, MPH, RD Please refer to Nutrition F/U for further details. Thanks!
--- NOTE | 2023-03-03 15:16 | NUR ---
SAM updated Doreen at [facility] . updated clinicals and discharge order faxed to #[phone]
--- NOTE | 2023-03-03 16:21 | NUR ---
Transportation home for patient arranged with [facility] [employer] [phone]. ETA 45 min to 3 hrs. reservation # [phone]
--- NOTE | 2023-03-03 18:45 | NUR ---
Discharge instructions given to daughter. IV removed and G-tube clamped. Patient in no apparent distress. Patient transported via [facility], accompanied by her daughter. See discharge summary.
--- NOTE | 2023-03-04 17:31 | NUR ---
CM: received call from [facility]: requested additional clinical and GT feeding formula . Stated did not get the feeding specification order and instructions. Pt is running out of the formula. She requested addition supplies as well. Addendum: 03/04/23 at 1738 by Gina Alexander RN CM will consult with boarder hand for staff physical therapy assistant in , for possible loan or providing some formula for the pt while the agency getting supply for the pt.
--- NOTE | 2023-03-05 11:24 | NUR ---
CM: S/w Erika, maturity checker this am , she provided to Doreen 3 days worth of Vital Hp formula ,total 6 bottles. Doreen will merchandise pickup/receiving associate today at dept.
== END 2023-03-03 18:38 | disposition home health service (06) | DRG 177 ==
LOC: SED 23:35 → STU 02-26 00:41 → SMU 03-02 19:00
PROVIDERS: ADMIT Internal Medicine; ATTEND Internal Medicine
PROC: 0DH63UZ Insertion of Feeding Device into Stomach, Percutaneous Approach (ICD-10-PCS; principal; 2023-03-01 07:30)
DX: J69.0 Pneumonitis due to inhalation of food and vomit (principal); E43 Unspecified severe protein-calorie malnutrition; I50.23 Acute on chronic systolic (congestive) heart failure; N17.0 Acute kidney failure with tubular necrosis; I48.20 Chronic atrial fibrillation, unspecified; Z68.1 Body mass index [BMI] 19.9 or less, adult; E87.0 Hyperosmolality and hypernatremia; I11.0 Hypertensive heart disease with heart failure; K29.70 Gastritis, unspecified, without bleeding; R13.10 Dysphagia, unspecified; F03.90 Unspecified dementia, unspecified severity, without behavioral disturbance, psychotic disturbance, mood disturbance, and anxiety; R53.81 Other malaise; E87.6 Hypokalemia; I34.81 Nonrheumatic mitral (valve) annulus calcification; Z20.822 Contact with and (suspected) exposure to COVID-19; Z87.440 Personal history of urinary (tract) infections; Z79.01 Long term (current) use of anticoagulants; Z79.899 Other long term (current) drug therapy; Z90.49 Acquired absence of other specified parts of digestive tract; Z86.73 Personal history of transient ischemic attack (TIA), and cerebral infarction without residual deficits; Z74.01 Bed confinement status
CPT/HCPCS: 36415; 43246; 71045; 71250-TC; 76376; 80048; 80053; 81000; 82550; 83605; 83735; 83880; 84484; 85025; 85379; 85610-TC; 85730-TC; 86140; 87040; 87081; 87086; 92610-GN; 93005; 96360; 99291; G0378; J0690; J0696; J1644; J2250; J2270; J3010; J3480; J7050; J7060

== ENCOUNTER 2023-03-18 14:10 | Inpatient (IN) | payer OTHER, MEDICAID ==
[~2023-03-18] VITALS: Ht 160 cm; Wt 39.0 kg
[~2023-03-18 14:10] MED LIST changes: +CEPH250S GT; +LACT1CAP62 GT; -LEVO-62 PO; -LEVO500P13 IV
[2023-03-18 14:18] VITALS: BP_SYST 135
--- NOTE | 2023-03-18 14:30 | NUR ---
PT RECEIVED, CARE ASSUMED. PT CONNECTED TO TELE MONITOR. MD AT BEDSIDE. WILL CONTINUE TO MONITOR
[2023-03-18] MEDS ORDERED: NACL 0.9% 1,000 ML IV ONE (14:45)
[2023-03-18] MEDS ORDERED: VERAPAMIL HCL 2.5 MG/ML 2ML VIAL IVP ONE (14:45)
--- NOTE | 2023-03-18 14:47 | NUR ---
FRNANIE SWABBED AND SENT TO LAB
[2023-03-18 15:17] LABS: BASOPHILS % (AUTO) 0.7 % (0.0-2.0); EOSINOPHILS # (AUTO) 0.1 K/uL (0.0-0.4); EOSINOPHILS % (AUTO) 0.9 % (0.0-4.0); HEMATOCRIT 37.2 % (36-48); HEMOGLOBIN 12.2 g/dL (12.0-16.0); LYMPHOCYTES # (AUTO) 1.4 K/uL (1.0-5.5); LYMPHOCYTES % (AUTO) 20.3 % (20.5-51.5); MEAN CORPUSCULAR HEMOGLOBIN 33 pg (27-31); MEAN CORPUSCULAR HGB CONC 33 % (32-36); MEAN CORPUSCULAR VOLUME 100 fL (79.0-98.0); MONOCYTES # (AUTO) 0.6 K/uL (0.0-1.0); MONOCYTES % (AUTO) 9.3 % (1.7-9.3); NEUTROPHILS # (AUTO) 4.7 K/uL (1.8-7.7); NEUTROPHILS % (AUTO) 68.8 % (40.0-70.0); PLATELET COUNT (AUTO) 245 K/uL (130-430); RED BLOOD CELL COUNT(AUTO) 3.73 MIL/uL (4.2-6.2); WHITE BLOOD COUNT (AUTO) 6.8 K/uL (4.8-10.8)
[2023-03-18 15:51] LABS: ALANINE AMINOTRANSFERASE 25 U/L (12-78); ALBUMIN 2.6 g/dL (3.4-4.8); ANION GAP 8 (5-15); ASPARTATE AMINOTRANSFERASE 22 U/L (10-37); CALCIUM 8.2 mg/dL (8.4-11.0); CREATININE 1.11 mg/dL (0.55-1.30); GLUCOSE 108 mg/dL (70-99); TOTAL BILIRUBIN 0.5 mg/dL (0.0-1.0); UREA NITROGEN, BLOOD 49 mg/dL (8-21)
[2023-03-18 15:53] LABS: CHLORIDE 122 mmol/L (98-107)
--- NOTE | 2023-03-18 16:16 | NUR ---
Admit bed requested Patient will be admitted to care of Dr. MONTILLA. Admitted to TELE unit. Diagnosis A-FIB W RVR Inpatient (Yes or No) YES Observation (Yes or No) NO Orientation concerns or request close to nursing station (Yes or No) NO Covid Status NEG On vent or bipap NO Isolation requirements NO Needs a sitter NO From Home (Yes or if No enter name of facility) HOME Requires Dialysis (Yes or No) NO Med Rec Completed (Yes of No) YES
[2023-03-18] MEDS ORDERED: ZOLPIDEM TARTRATE 5 MG TABLET PO PRN (16:45)
[2023-03-18] MEDS ORDERED: NALOXONE HCL 0.4 MG/ML AMP (NARCAN) IVP PRN ×2 (16:45)
[2023-03-18] MEDS ORDERED: MUPIROCIN 2% TOPICAL OINTMENT 22 GM NS PRN (16:45)
[2023-03-18] MEDS ORDERED: DOCUSATE SODIUM 100 MG CAPSULE PO PRN (16:45)
[2023-03-18] MEDS ORDERED: ALBUTEROL MDI INHALATION 8 GM INH INH PRN (16:45)
[2023-03-18] MEDS ORDERED: ONDANSETRON HCL 4 MG/2 ML VIAL IVP PRN (16:45)
[2023-03-18] MEDS ORDERED: MORPHINE 2 MG/ML INJ. SYRINGE IVP PRN ×2 (16:45)
[2023-03-18] MEDS ORDERED: ACETAMINOPHEN 325 MG TABLET PO PRN ×2 (16:45→17:45)
[2023-03-18] MEDS ORDERED: LORazepam 2 MG/ML VIAL IVP PRN (16:45)
[2023-03-18] MEDS ORDERED: MAGNESIUM SULFATE 50 ML IV PRN (16:45)
--- NOTE | 2023-03-18 17:11 | NUR ---
CONSULTATION PAGED/CALLED Reason for Consultation: A FIB WITH RVR Person Who was Notified: MARIE Consulting Physician: DESHAWN WIN [employer] Registrar Specialty: Ordering Physician: KRISS MONTILLA
--- NOTE | 2023-03-18 17:15 | NUR ---
CONSULTATION PAGED/CALLED Reason for Consultation: ELEC IMB Person Who was Notified: NATALIE Consulting Physician: ALIX TAVERAS Training Program Assistant Specialty: Ordering Physician: KRISS MONTILLA
--- NOTE | 2023-03-18 17:30 | NUR ---
Admission Pt arrived to floor from ED via gurney. Pt was transferred to bed from [facility], total assist. Pt and her daughter Kaity were oriented to room and nursing routines and procedures. Questions/concerns were answered. Dr Luu came to bedside. Call light within reach.
[2023-03-18 17:35] VITALS: BP_SYST 149
--- NOTE | 2023-03-18 17:35 | NUR ---
ADMISSION NOTE Received patient from ER via Guerline miller received report from ER nurse Tera. Patient admitted with diagnosis of Afib with RVR. Patient with limited understanding due to language barrier.Patient's daughter at the bedside,oriented to hospital routine, call light, toileting and safety- verbalized understanding.
[2023-03-18] MEDS ORDERED: ALBUTEROL SULFATE 0.083% 2.5 MG/3 ML VIAL.NEB INH PRN (17:45)
[2023-03-18] MEDS ORDERED: METOPROLOL TARTRATE 25 MG TABLET PO ONE (18:00)
[2023-03-18] MEDS: 0.45% NACL 1,000 ML IV SCH (18:03)
--- NOTE | 2023-03-18 18:03 | NUR ---
Patient will be admitted to care of SHERRILL. Admitted to unit. Will go to room . Belongings list completed. Complete and up to date summary report printed. SBAR report to be given at bedside with opportunity for questions.
[2023-03-18 18:05] VITALS: BP_SYST 135
--- NOTE | 2023-03-18 19:49 | NUR ---
End of shift Pt resting in bed with 2 daughters at bedside. Pt stable. Tele unit was applied on admission to floor. Bed in low position and bed alarm on. Side rails raised. Call light within reach.
[2023-03-18 20:00] VITALS: BP_SYST 137
--- NOTE | 2023-03-18 20:00 | NUR ---
RECEIVED PATIENT AT BEDSIDE. PATIENT WAS ASLEEP IN BED WITH DAUGHTER AT BEDSIDE. PATIENT IS AXO 3. HEART RATE IS 124, BLOOD PRESSURE 137/76, RESP. 16, 98.8, 98% RA. NO S/S OF PAIN OR DISCOMFORT AT THIS TIME. SAFETY CHECKS ARE DONE AND CALL LIGHT WITH IN REACH.
[2023-03-18] MEDS: APIXABAN 2.5 MG TABLET PO SCH (22:08)
--- NOTE | 2023-03-18 23:25 | NUR ---
PAGED DR. WIN REGARDING PATIENT'S HEART RATE SUSTAINING IN THE 120S. METOPOLOL 25MG 1X DOSE WAS ORDERED. ADMINISTERED MEDICATION AND HUNG PATIENT'S GTUBE FEEDING. WILL CONTINUE TO MONITOR HEART RATE. ALL NEEDS WERE MET AT THIS TIME SAFETY CHECKS ARE DONE AND CALL LIGHT WITH IN REACH
[2023-03-18] MEDS ORDERED: METOPROLOL TARTRATE 25 MG TABLET GT ONE (23:30)
[2023-03-19 00:07] VITALS: BP_SYST 134
[2023-03-19 05:29] LABS: BASOPHILS # (AUTO) 0.1 K/uL (0.0-0.2); BASOPHILS % (AUTO) 0.9 % (0.0-2.0); EOSINOPHILS # (AUTO) 0.3 K/uL (0.0-0.4); EOSINOPHILS % (AUTO) 3.6 % (0.0-4.0); HEMATOCRIT 34.3 % (36-48); HEMOGLOBIN 11.1 g/dL (12.0-16.0); LYMPHOCYTES # (AUTO) 1.5 K/uL (1.0-5.5); LYMPHOCYTES % (AUTO) 21.4 % (20.5-51.5); MEAN CORPUSCULAR HEMOGLOBIN 33 pg (27-31); MEAN CORPUSCULAR HGB CONC 32 % (32-36); MEAN CORPUSCULAR VOLUME 101 fL (79.0-98.0); MONOCYTES # (AUTO) 0.5 K/uL (0.0-1.0); MONOCYTES % (AUTO) 6.6 % (1.7-9.3); NEUTROPHILS # (AUTO) 4.9 K/uL (1.8-7.7); NEUTROPHILS % (AUTO) 67.5 % (40.0-70.0); PLATELET COUNT (AUTO) 207 K/uL (130-430); RED BLOOD CELL COUNT(AUTO) 3.41 MIL/uL (4.2-6.2); RED CELL DISTRIBUTION WIDTH 17.2 % (9.0-15.0); WHITE BLOOD COUNT (AUTO) 7.3 K/uL (4.8-10.8)
[2023-03-19 06:05] LABS: ANION GAP 7 (5-15); CALCIUM 7.9 mg/dL (8.4-11.0); CHLORIDE 119 mmol/L (98-107); CREATININE 0.88 mg/dL (0.55-1.30); GLUCOSE 102 mg/dL (70-99); UREA NITROGEN, BLOOD 39 mg/dL (8-21)
[2023-03-19] MEDS: 0.45% NACL 1,000 ML IV SCH (06:50)
--- NOTE | 2023-03-19 07:30 | NUR ---
Initial Note: Report received from shift commander nurse Jennifer. Daughter is at the bedside. Assessment is done and vital checked. No sign of pain or discomfort at this time. Bed in the lowest position and side rails x3 up. Call light in reach. Will continue patient care.
--- NOTE | 2023-03-19 07:45 | NUR ---
CLOSING Patient resting in bed, no distress noted, unlabored breathing on room air. Tube feeding running at 30mL/hr, G-tube flushing well, no residual noted. Daughter at bedside. Aspiration and safety precautions in place. Endorsed to oncoming nurse.
[2023-03-19 08:00] VITALS: BP_SYST 130
[2023-03-19] MEDS ORDERED: METOPROLOL SUCCINATE 25 MG TAB.SR.24H (TOPROL XL) PO SCH (09:00)
[2023-03-19] MEDS ORDERED: ESCITALOPRAM OXALATE 10 MG TABLET PO SCH (09:00)
[2023-03-19] MEDS ORDERED: DONEPEZIL HCL 5 MG TABLET (ARICEPT) PO SCH (09:00)
[2023-03-19] MEDS ORDERED: CITALOPRAM HYDROBROMIDE 20 MG TABLET PO SCH (09:00)
[2023-03-19] MEDS: ATORVASTATIN 10 MG TABLET PO SCH (09:28)
[2023-03-19] MEDS: APIXABAN 2.5 MG TABLET PO SCH ×2 (09:30→21:07)
[2023-03-19] MEDS: METOPROLOL SUCCINATE 25 MG TAB.SR.24H (TOPROL XL) PO SCH (09:30)
--- NOTE | 2023-03-19 10:24 | NUR ---
ST SWALLOW/ORAL EVAL [facility] CALLED CALLED [phone] LEFT A VOICEMAIL FOR A SWALLOW EVAL.
--- NOTE | 2023-03-19 10:31 | NUR ---
Note: patient is awake and alert. No pain or discomfort at this time. Daughter is at the bedside.
[2023-03-19 12:00] VITALS: BP_SYST 128
--- NOTE | 2023-03-19 12:32 | NUR ---
Note: patient is awake and alert. Daughter is at the bedside. Call light in reach. Bed in the lowest position. Side rails x2 up. Assisted to turn and performed aldo-care. No pain or discomfort at this time. Will continue to monitor.
[2023-03-19 16:00] VITALS: BP_SYST 125
--- NOTE | 2023-03-19 17:07 | NUR ---
ST EVALUATION COMPLETED. ST TX NOT INDICATED. PT UNABLE TO DEMONSTRATE ADEQUATE SWALLOW FUNCTION AND SAFETY. RECOMMEND CONTINUE NPO WITH ALTERNATIVE MEANS OF NUTRITION.
--- NOTE | 2023-03-19 18:26 | NUR ---
Closing Note: patient is resting in bed. Daughter at the bedside. Bed in the lowest position and side rails x3 up. Call light in reach. No pain or discomfort at this time. Will endorse fast food shift supervisor nurse to continue patient care.
[2023-03-19 20:00] VITALS: BP_SYST 138
[2023-03-20 00:22] VITALS: BP_SYST 121
--- NOTE | 2023-03-20 07:00 | NUR ---
PT TOLERATED TUBE FEEDING. 0 RESIDUAL VOLUME. FAMILY AT BEDSIDE DURING SHIFT. PT DID NOT TRY TO CLIMB OUT OF BED. PT CHANGED MULTIPLE TIMES DURING SHIFT
[2023-03-20 08:00] VITALS: BP_SYST 144
[2023-03-20 08:21] LABS: BASOPHILS % (AUTO) 0.4 % (0.0-2.0); EOSINOPHILS # (AUTO) 0.3 K/uL (0.0-0.4); EOSINOPHILS % (AUTO) 4.6 % (0.0-4.0); HEMATOCRIT 36.8 % (36-48); HEMOGLOBIN 12.1 g/dL (12.0-16.0); LYMPHOCYTES # (AUTO) 1.2 K/uL (1.0-5.5); LYMPHOCYTES % (AUTO) 19.5 % (20.5-51.5); MEAN CORPUSCULAR HEMOGLOBIN 33 pg (27-31); MEAN CORPUSCULAR HGB CONC 33 % (32-36); MEAN CORPUSCULAR VOLUME 99 fL (79.0-98.0); MONOCYTES # (AUTO) 0.4 K/uL (0.0-1.0); MONOCYTES % (AUTO) 6.3 % (1.7-9.3); NEUTROPHILS # (AUTO) 4.1 K/uL (1.8-7.7); NEUTROPHILS % (AUTO) 69.2 % (40.0-70.0); PLATELET COUNT (AUTO) 217 K/uL (130-430); RED BLOOD CELL COUNT(AUTO) 3.72 MIL/uL (4.2-6.2); RED CELL DISTRIBUTION WIDTH 16.4 % (9.0-15.0)
[2023-03-20 08:35] LABS: ANION GAP 8 (5-15); CALCIUM 8.3 mg/dL (8.4-11.0); CHLORIDE 113 mmol/L (98-107); CREATININE 0.88 mg/dL (0.55-1.30); GLUCOSE 101 mg/dL (70-99); UREA NITROGEN, BLOOD 31 mg/dL (8-21)
[2023-03-20] MEDS: ATORVASTATIN 10 MG TABLET PO SCH (08:45)
[2023-03-20] MEDS: METOPROLOL SUCCINATE 25 MG TAB.SR.24H (TOPROL XL) PO SCH (08:45)
[2023-03-20] MEDS: APIXABAN 2.5 MG TABLET PO SCH ×2 (08:49→21:13)
[2023-03-20] MEDS: POTASSIUM CHLORIDE 20 MEQ TAB.PRT.SR PO PRN (10:58)
[2023-03-20 12:00] VITALS: BP_SYST 132
[2023-03-20] MEDS: METHYL SALICYLATE/MENTH/CAMPH 57 GM CREAM..G. TP SCH ×2 (15:00→21:13)
[2023-03-20 16:00] VITALS: BP_SYST 130
--- NOTE | 2023-03-20 18:14 | NUR ---
pt alert. tf infusing as ordered - no residual. turned q2 hours. family at bedside all day. speech therapist did not come by for swallow eval. potassium replaced per protocl. topical cream ordered for knee pain. fall precautions in place. vss. call king in reach. Addendum: 03/21/23 at 0428 by Jordyn Toro LVN Rounding Note: Pt is sleeping in bed with family member in the room. Respirations are even and unlabored. No complaints of pain or distress. Safety precautions in place. Bed in low position, Bed rails x3 is up, Call light within reach.
[2023-03-20 20:00] VITALS: BP_SYST 127
[2023-03-21] VITALS (7 sets, daily range): BP systolic 129–136
--- NOTE | 2023-03-21 | NUR ---
Rounding Note: Patient is sleeping in bed. Family member in room with her. Respirations are even and unlabored. No complaints of pain and distress. Safety precautions in place. Bed in low position, Bed rails x3 raised, Call light within reach.
[2023-03-21 05:57] LABS: BASOPHILS % (AUTO) 0.4 % (0.0-2.0); EOSINOPHILS # (AUTO) 0.2 K/uL (0.0-0.4); EOSINOPHILS % (AUTO) 4.1 % (0.0-4.0); HEMATOCRIT 35.8 % (36-48); LYMPHOCYTES # (AUTO) 1.3 K/uL (1.0-5.5); LYMPHOCYTES % (AUTO) 23.5 % (20.5-51.5); MEAN CORPUSCULAR HEMOGLOBIN 33 pg (27-31); MEAN CORPUSCULAR HGB CONC 33 % (32-36); MEAN CORPUSCULAR VOLUME 98 fL (79.0-98.0); MONOCYTES # (AUTO) 0.4 K/uL (0.0-1.0); MONOCYTES % (AUTO) 7.8 % (1.7-9.3); NEUTROPHILS # (AUTO) 3.6 K/uL (1.8-7.7); NEUTROPHILS % (AUTO) 64.2 % (40.0-70.0); PLATELET COUNT (AUTO) 213 K/uL (130-430); RED BLOOD CELL COUNT(AUTO) 3.66 MIL/uL (4.2-6.2); RED CELL DISTRIBUTION WIDTH 15.9 % (9.0-15.0); WHITE BLOOD COUNT (AUTO) 5.5 K/uL (4.8-10.8)
[2023-03-21 06:07] LABS: ANION GAP 8 (5-15); CALCIUM 8.5 mg/dL (8.4-11.0); CHLORIDE 110 mmol/L (98-107); CREATININE 0.85 mg/dL (0.55-1.30); GLUCOSE 106 mg/dL (70-99); UREA NITROGEN, BLOOD 32 mg/dL (8-21)
--- NOTE | 2023-03-21 07:07 | NUR ---
Closing note: Patient sleeping in bed. Pt is cleaned: diaper and gown change, bedding change. Respirations are even and unlabored. No complaints of pain or distress. Safety precauitions in place. Bed in low posiition, alarm on, call light within reach.
[2023-03-21] MEDS: ATORVASTATIN 10 MG TABLET PO SCH (08:47)
[2023-03-21] MEDS: METOPROLOL SUCCINATE 25 MG TAB.SR.24H (TOPROL XL) PO SCH (08:47)
[2023-03-21] MEDS: APIXABAN 2.5 MG TABLET PO SCH ×2 (08:49→20:30)
[2023-03-21] MEDS: METHYL SALICYLATE/MENTH/CAMPH 57 GM CREAM..G. TP SCH ×3 (09:00→20:32)
--- NOTE | 2023-03-21 14:22 | NUR ---
Dietitian Recommendations * Ordered: Nepro @ 40 mL/hr (goal rate) via GT: - Provides: 1728 kcals, 78 g PRO, and 698 mL of free water daily. - Meets: 95% upper est. kcal needs and 100% upper est. pro needs daily. * Defer est. fluid needs to d/t CHF. Submitted for MELANY Smith by Audrey Webb, MPH, RD Please see Nutrition Assessment for further details. Thanks!
--- NOTE | 2023-03-21 18:52 | NUR ---
pt alert, able to follow commands. tf infusing at new rate of 40ml/hr. family remains at bedside. q2 hour turns, call king in reach.
--- NOTE | 2023-03-21 19:30 | NUR ---
Opening Note: Received pt awake, laying in bed. AOx2, follows commands. Respirations are even and unlabored. No complaints of pain or distress. Patient cleaned, gown and bedsheets changed. Family remains at bedside. Safety precautions are in place. Bed in low position, bed rails x3 raised, call light within reach.
--- NOTE | 2023-03-22 00:30 | NUR ---
MIDSHIFT NOTE: PT IS AWAKE, LAYING DOWN IN BED. RESPIRATIONS ARE EVEN AND UNLANBORED. NO COMPLAINTS OF PAIN AND DISTRESS. FAMILY MEMBERS ARE AT BEDSIDE WITH PATIENT. BED LOW IN POSITION, BED RAILS RAISED, CALL LIGHT WITHIN REACH.
[2023-03-22 00:54] VITALS: BP_SYST 125
[2023-03-22 06:01] LABS: BASOPHILS % (AUTO) 0.3 % (0.0-2.0); EOSINOPHILS # (AUTO) 0.2 K/uL (0.0-0.4); EOSINOPHILS % (AUTO) 2.3 % (0.0-4.0); HEMATOCRIT 36.9 % (36-48); HEMOGLOBIN 12.3 g/dL (12.0-16.0); LYMPHOCYTES # (AUTO) 1.2 K/uL (1.0-5.5); LYMPHOCYTES % (AUTO) 16.7 % (20.5-51.5); MEAN CORPUSCULAR HEMOGLOBIN 33 pg (27-31); MEAN CORPUSCULAR HGB CONC 33 % (32-36); MEAN CORPUSCULAR VOLUME 98 fL (79.0-98.0); MONOCYTES # (AUTO) 0.6 K/uL (0.0-1.0); MONOCYTES % (AUTO) 7.5 % (1.7-9.3); NEUTROPHILS # (AUTO) 5.4 K/uL (1.8-7.7); NEUTROPHILS % (AUTO) 73.2 % (40.0-70.0); PLATELET COUNT (AUTO) 230 K/uL (130-430); RED BLOOD CELL COUNT(AUTO) 3.78 MIL/uL (4.2-6.2); RED CELL DISTRIBUTION WIDTH 16.1 % (9.0-15.0); WHITE BLOOD COUNT (AUTO) 7.4 K/uL (4.8-10.8)
[2023-03-22 06:54] LABS: ANION GAP 10 (5-15); CALCIUM 8.8 mg/dL (8.4-11.0); CHLORIDE 108 mmol/L (98-107); CREATININE 0.94 mg/dL (0.55-1.30); GLUCOSE 112 mg/dL (70-99); UREA NITROGEN, BLOOD 37 mg/dL (8-21)
--- NOTE | 2023-03-22 07:05 | NUR ---
CLOSING NOTE: PATIENT IS AWAKE LAYING IN BED. RESPIRATIONS ARE EVEN AND UNLABORED. NO COMPLAINTS OF PAIN OR DISTRESS. FAMILY MEMBER IS BY PT BEDSIDE. BED IN LOW POSITION, BED RAILS X3 RAISED, CALL LIGHT WITHIN REACH.
--- NOTE | 2023-03-22 07:50 | NUR ---
Opening Nurse Notes: Patient laying in bed. A/O x 2, Tagalog speaking. Patient breathing even on Room air. No pain, no distress, no SOB. Patient is on a GT with Jevity running at 60 mL/hr. Patient has 22 gauge L wrist SL. Bed is locked in lowest position. Call light within reach, all needs met, will continue with plan of care.
[2023-03-22 08:00] VITALS: BP_SYST 148
[2023-03-22] MEDS: ATORVASTATIN 10 MG TABLET PO SCH (10:03)
[2023-03-22] MEDS: APIXABAN 2.5 MG TABLET PO SCH (10:03)
[2023-03-22] MEDS: METOPROLOL SUCCINATE 25 MG TAB.SR.24H (TOPROL XL) PO SCH (10:04)
[2023-03-22] MEDS: METHYL SALICYLATE/MENTH/CAMPH 57 GM CREAM..G. TP SCH ×2 (10:08→16:28)
[2023-03-22] MEDS: POTASSIUM CHLORIDE 20 MEQ TAB.PRT.SR PO PRN (10:28)
--- NOTE | 2023-03-22 11:58 | NUR ---
Nurse Notes: 10:[address] Campbell was doing rounds and met with patient. Doctor ordered 40 meq of potassium (which was given shortly after) and a swallow evaluation (afternoon). 11:15 Patient's daughter asking for more labs to retest patients potassium. 11:15 Paged doctor regarding patients request. Dr. Campbell called back and had me reassure daughter that patient is okay to leave. Discharge will continue as ordered per Dr. Campbell.
--- NOTE | 2023-03-22 12:10 | NUR ---
Afternoon Nurse Notes: Patient laying in bed. Feeding tube running as ordered. No pain, no distress, no SOB. Bed is locked in lowest position. Call light within reach, all needs met, will continue with plan of care.
[2023-03-22 15:59] VITALS: BP_SYST 137
--- NOTE | 2023-03-22 16:00 | NUR ---
Late Noon Nurse Notes: Patient laying stable and asleep in bed. No pain, no distress, no SOB. Bed is locked in lowest position. Call light within reach, all needs met, will continue with plan of care. Daughter at bedside.
[2023-03-22 16:14] VITALS: BP_SYST 137
--- NOTE | 2023-03-22 16:56 | NUR ---
ST EVALUATION COMPLETED. ST TX NOT INDICATED AT THIS TIME. pT UNABLE TO DEMONSTRATE A SAFE AND ADEQUATE SWALLOW. RECOMMEND NPO AND ALTERNATIVE MEANS OF NUTRITION.
--- NOTE | 2023-03-22 17:10 | NUR ---
CALLED A CAR KARRIE CALLED INFROMED ME PATIENT HAS AN ETA DIRECTOR STATISTICAL PROGRAMMING TIME AT 1900 WITH [employer].
--- NOTE | 2023-03-22 17:55 | NUR ---
Nurse Notes: Patient family unhappy with DC medication list. 17:[address] Luu regarding feeding bolus. called back immediately and new orders were put in by TO. 18:34 Dr. Ortega paged regarding Metoprolol. Dr. Ortega clarified that patient may take it 25 mg BID, with parameters which were provided in DC paperwork.
--- NOTE | 2023-03-22 19:25 | NUR ---
Discharge Nurse Notes: Patient stable on transport paul. Patient Breathing even and unlabored on room air. No pain, no distress, no SOB. All needs met. Addendum: 03/22/23 at 2045 by Miguel A Sierra LVN Patient DC'd to [facility].
--- NOTE | 2023-03-22 19:30 | NUR ---
Closing note: Patient stable and laying in bed. Patient Breathing even and unlabored on room air. No pain, no distress, no SOB. Bed is locked in lowest position. Call light within reach, all needs met, will endorse to securities attorney nurse. Family at bedside. DC in process. Addendum: 03/22/23 at 1957 by Miguel A Sierra LVN Time is actually 1914 for closing notes.
--- NOTE | 2023-03-23 12:59 | NUR ---
faxed pt information to [facility] phone#[phone] and fax#[phone]
== END 2023-03-22 18:50 | disposition home health service (06) | DRG 291 ==
LOC: SED 14:10 → STU 16:14
PROVIDERS: ADMIT General Practice; ATTEND General Practice
DX: I11.0 Hypertensive heart disease with heart failure (principal); G93.41 Metabolic encephalopathy; I50.43 Acute on chronic combined systolic (congestive) and diastolic (congestive) heart failure; I48.20 Chronic atrial fibrillation, unspecified; E44.0 Moderate protein-calorie malnutrition; Z68.1 Body mass index [BMI] 19.9 or less, adult; E87.0 Hyperosmolality and hypernatremia; E86.0 Dehydration; E86.1 Hypovolemia; E87.8 Other disorders of electrolyte and fluid balance, not elsewhere classified; F32.A Depression, unspecified; Z20.822 Contact with and (suspected) exposure to COVID-19; R13.10 Dysphagia, unspecified; F03.90 Unspecified dementia, unspecified severity, without behavioral disturbance, psychotic disturbance, mood disturbance, and anxiety; R53.81 Other malaise; I27.20 Pulmonary hypertension, unspecified; Z93.1 Gastrostomy status; Z90.49 Acquired absence of other specified parts of digestive tract; Z87.440 Personal history of urinary (tract) infections; Z79.01 Long term (current) use of anticoagulants; Z86.73 Personal history of transient ischemic attack (TIA), and cerebral infarction without residual deficits; Z79.899 Other long term (current) drug therapy; Z74.01 Bed confinement status
CPT/HCPCS: 36415; 71045; 80048; 80053; 83037; 83735; 83880; 84484; 85025; 87081; 92610-GN; 93005; 94760; 96361; 96374; 99285; G0378; J7613